=== PATIENT | female | born 2000 | race Asian ===

== ENCOUNTER 2021-03-26 20:49 | Emergency (ER) | payer SELFPAY ==
[~2021-03-26] VITALS: Ht 144.8 cm; Wt 50.0 kg
[2021-03-26 21:15] VITALS: BP 111/42
--- NOTE | 2021-03-26 22:35 | PHYS DOC ---
Past Medical History Past Surgical History: No Surgical History General Adult EDM: Chief Complaint: VAGINAL PROBLEM HPI: HPI: Patient is a 20 year old female with no significant medical history presents to the ED today worried she could be . Patient states she had a normal period hayley began March 11 and ended March 18 2021. She states around March 21 she started spotting. She states she checked on google and it said she could be . She states she did take 2 tests at home and they were al l negative. Patient denies any abdominal pain, denies any concerns for STDs, denies any nausea or vomiting. She states her main concern is to make sure she is not . Review of Systems: Review of Systems: Constitutional: Denies fever or chills. [] GI: Denies abdominal pain, nausea, vomiting, bloody stools or diarrhea. [] Female : Reports spotting : Denies dysuria. [] Musculoskeletal: Denies back pain or joint pain. [] Integument: Denies rash. [] Neurologic: Denies headache, focal weakness or sensory changes. [] Psychiatric: Denies depression or anxiety. [] Heart Score: C/O Chest Pain: N/A Risk Factors: Risk Factors: DM, Current or recent (<one month) smoker, HTN, HLP, family history of CAD, obesity. Risk Scores: Score 0 - 3: 2.5% MACE over next 6 weeks - Discharge Home Score 4 - 6: 20.3% MACE over next 6 weeks - Admit for Clinical Observation Score 7 - 10: 72.7% MACE over next 6 weeks - Early Invasive Strategies Allergies: Allergies: Allergies Coded Allergies Type Severity Reaction Last Updated Verified No Known Drug Allergies 03/26/21 No Physical Exam: PE: Constitutional: Well developed, well nourished, no acute distress, non-toxic appearance. [] Abdomen: Bowel sounds normal, soft, no tenderness, no masses, no pulsatile masses. [] Pelvic exam External pelvic appears normal, cervix is visualized, closed, no CMT, trace amount of clear white discharge noted in the vaginal vault, no adnexal tenderness Skin: Warm, dry, no erythema, no rash. [] Back: No tenderness, no CVA tenderness. [] Extremities: No tenderness, no cyanosis, no clubbing, ROM intact, no edema. [] Neurologic: Alert and oriented X 3, normal motor function, normal sensory fu nction, no focal deficits noted. [] Psychologic: Affect normal, judgement normal, mood normal. [] Current Patient Data: Labs: Laboratory Tests Test 03/26/21 21:33 POC Urine HCG, Qualitative Hcg negative (Negative) Vital Signs: Vital Signs Date Time Temp Pulse Resp B/P (MAP) Pulse Ox O2 Delivery O2 Flow Rate FiO2 03/26/21 21:15 98.1 80 18 111/42 (65) 98 Room Air 98.1 EKG: EKG: [] Radiology/Procedures: Radiology/Procedures: [] Course & Med Decision Making: Course & Med Decision Making Pertinent Labs and Imaging studies reviewed. (See chart for details) This is a 20-year-old female patient presenting to the ED today concerned she is . She had a normal cycle March 09 of March 18 and then started spotting March 21 2021 Negative urine hCG. Patient was reassured. I encouraged her to use contr ol if she is not trying to be . Gave her resources for [facility]. Marybeth Disclaimer: Marybeth Disclaimer: This electronic medical record was generated, in whole or in part, using a voice recognition dictation system. Departure Departure Impression: Primary Impression: Dysfunctional uterine bleeding Disposition: HOME / SELF CARE / HOMELESS Condition: STABLE Referrals: NO PCP (PCP) [facility]. [address] [place] [address] [address], [place] [address] Patient Instructions: Uterine Bleeding, Dysfunctional, [id number]-Ezow Additional Instructions: Your test is negative. Please consider going to [facility] as soon as possible to be started on control otherwise you will get [facility]. [address], [place] [address] EMERY CASTANO APRN Mar 26, 2021 22:35
== END 2021-03-26 23:05 | disposition home or self-care (01) ==
LOC: ER 20:49
DX: N93.8 Other specified abnormal uterine and vaginal bleeding (principal)
CPT/HCPCS: 81025; 99282; 99284

== ENCOUNTER 2021-04-14 22:02 | Emergency (ER) | payer OTHER ==
[~2021-04-14] VITALS: Ht 149.9 cm; Wt 49.9 kg
[2021-04-15 00:28] LABS: BILIRUBIN,URINE NEGATIVE (NEG); CLARITY,URINE CLEAR; COLOR,URINE YELLOW; NITRITE,URINE NEGATIVE (NEG); PH,URINE 6.5 (<5.0-8.0); PROTEIN,URINE NEGATIVE (NEG-TRACE); UROBILINOGEN,URINE 0.2 mg/dL (0.2 mg/dL)
--- NOTE | 2021-04-15 00:29 | PHYS DOC ---
Past Medical History Past Surgical History: No Surgical History Smoking Status: Never Smoker Alcohol Use: None Drug Use: None General Adult EDM: Chief Complaint: VAGINAL PROBLEM HPI: HPI: Patient is a 20-year-old female that presents today with vaginal discharge and painful urination. Patient states that over the last week she has had white chunky discharge from her vagina, and she is also had labial tenderness as well. Patient also states that she has had painful urination. She states that she was on an antibiotic for urinary tract infection not too long ago and she thinks that she still has a urinary tract infection and that is what caused her vaginal discharge. Patient did not follow[facility] with [facility] that was advised prior visit. Review of Systems: Review of Systems: Constitutional: Denies fever or chills. [] Eyes: Denies change in visual acuity. [] HENT: Denies nasal congestion or sore throat. [] Respiratory: Denies cough or shortness of breath. [] Cardiovascular: Denies chest pain or edema. [] GI: Denies abdominal pain, nausea, vomiting, bloody stools or diarrhea. [] /POUNCER MACHINE: Vaginal discharge and dysuria Musculoskeletal: Denies back pain or joint pain. [] Integument: Denies rash. [] Neurologic: Denies headache, focal weakness or sensory changes. [] Endocrine: Denies polyuria or polydipsia. [] Lymphatic: Denies swollen glands. [] Psychiatric: Denies depression or anxiety. [] Heart Score: C/O Chest Pain: N/A Risk Factors: Risk Factors: DM, Current or recent (<one month) smoker, HTN, HLP, family history of CAD, obesity. Risk Scores: Score 0 - 3: 2.5% MACE over next 6 weeks - Discharge Home Score 4 - 6: 20.3% MACE over next 6 weeks - Admit for Clinical Observation Score 7 - 10: 72.7% MACE over next 6 weeks - Early Invasive Strategies Allergies: Allergies: Allergies Coded Allergies Type Severity Reaction Last Updated Verified No Known Drug Allergies 03/26/21 No Physical Exam: PE: Constitutional: Well developed, well nourished, no acute distress, non-toxic appearance. [] HENT: Normocephalic, atraumatic, bilateral external ears normal, oropharynx moist, no oral exudates, nose normal. [] Eyes: PERRLA, EOMI, conjunctiva normal, no discharge. [] Neck: Normal range of motion, no tenderness, supple, no stridor. [] Cardiovascular:Heart rate regular rhythm, no murmur [] Lungs & Thorax: Bilateral breath sounds clear to auscultation [] Abdomen: Bowel sounds normal, soft, no tenderness, no masses, no pulsatile masses. [] Skin: Warm, dry, no erythema, no rash. [] Back: No tenderness, no CVA tenderness. [] Extremities: No tenderness, no cyanosis, no clubbing, ROM intact, no edema. [] Neurologic: Alert and oriented X 3, normal motor function, normal sensory function, no focal deficits noted. [] Psychologic: Affect normal, judgement normal, mood normal. POUNCER MACHINE labia's are reddened on the right side, white discharge noted[] Current Patient Data: Labs: Wet prep positive for yeast Laboratory Tests Test 04/15/21 00:10 04/15/21 00:17 Urine Collection Type Unknown Urine Color Yellow Urine Clarity Clear Urine pH 6.5 Urine Specific [place] 1.020 Urine Protein Negative mg/dL Urine Glucose (UA) Negative mg/dL Urine Ketones (Stick) Trace mg/dL Urine Blood Negative Urine Nitrite Negative Urine Bilirubin Negative Urine Urobilinogen Dipstick 0.2 mg/dL Urine Leukocyte Esterase Moderate Urine RBC Rare /HPF Urine WBC 11-20 /HPF Urine Squamous Epithelial Cells Many /LPF Urine Bacteria Few /HPF Urine Mucus Slight /LPF Urine Yeast Present /HPF Bedside Urine HCG, Qualitative Hcg negative Laboratory Tests Test 04/15/21 00:17 POC Urine HCG, Qualitative Hcg negative (Negative) Vital Signs: Vital Signs Date Time Temp Pulse Resp B/P (MAP) Pulse Ox O2 Delivery O2 Flow Rate FiO2 04/15/21 00:21 98.1 72 16 99/46 (63) 99 Room Air 98.1 EKG: EKG: [] Radiology/Procedures: Radiology/Procedures: [] Course & Med Decision Making: Course & Med Decision Making Pertinent Labs and Imaging studies reviewed. (See chart for details) Patient will be treated for urinary tract infection and for yeast infection, patient does not exhibit signs and symptoms of STI at this time, will treat with Macrobid twice daily for 7 days and Diflucan x1 for the yeast infection. Patient also educated that she can treat her yeast infections with over-the-co unter remedies such as Monistat in future use. Patient is instructed to increase by mouth fluids and to follow-up with your primary care physician or one of the clinics listed in the discharge instructions for further management of urinary tract infections. Marybeth Disclaimer: Marybeth Disclaimer: This electronic medical record was generated, in whole or in part, using a voice recognition dictation system. Departure Departure Impression: Primary Impression: UTI (urinary tract infection) Qualified Codes: N30.00 - Acute cystitis without hematuria Additional Impression: Yeast infection Disposition: HOME / SELF CARE / HOMELESS Condition: STABLE Referrals: NO PCP (PCP) Patient Instructions: Urinary Tract Infection Additional Instructions: Macrobid take 1 tablet twice daily for 7 full days for urinary tract infection Diflucan take 1 tablet Increase by mouth fluids, avoiding caffeine or alcohol they have a tendency to irritate the bladder No sexual contact until you have finished your Macrobid Follow-up with your primary care physician in one of the clinics listed below for further management of her urinary tract infection [facility] [address] [place] [address] [facility] [address] [place] [address] [facility] [address] [facility] [place] [place] [address] [facility] [address] [place] [address] [facility] [address] [place] [address] [facility] [address] [place] [address] [facility] [address] [place] [address] [facility] [place] [address] [place] [address] [facility] [address] [place] [address] [facility] [address] [place] [address] Scripts Fluconazole (DIFLUCAN) 150 Mg Tablet 1 TAB PO ONCE, #1 TAB 1 Refill Prov: GUCCI WELLER [employer] EXECUTIVE 04/15/21 Nitrofurantoin Monohyd/M-Cryst (MACROBID 100 MG CAPSULE) 100 Mg Capsule 1 CAP PO BID for 7 Days, #14 CAP 0 Refills Prov: GUCCI WELLER [employer] EXECUTIVE 04/15/21 GUCCI [employer] EXECUTIVE Apr 15, 2021 00:29
[2021-04-15 00:35] LABS: BACTERIA,URINE FEW /HPF (0-FEW); RBC,URINE RARE /HPF (0-2)
[2021-04-15 00:37] LABS: YEAST,URINE PRESENT /HPF
[2021-04-15] MEDS ORDERED: NITR100C62 PO (00:55)
[2021-04-15] MEDS ORDERED: FLUC150T PO (00:55)
[2021-04-15] MEDS ORDERED: NITROFURANTOIN MONOHYD/M-CRYST 100 MG CAPSULE. PO ONE (01:00)
[2021-04-15 01:20] VITALS: BP 113/68
[2021-04-16 20:11] LABS: GC PROBE Negative (Negative)
== END 2021-04-15 01:21 | disposition home or self-care (01) ==
LOC: ER 23:10
DX: N30.00 Acute cystitis without hematuria (principal); B37.3 Candidiasis of vulva and vagina
CPT/HCPCS: 81001; 81025; 87086; 87491; 87591; 99283; Q0111